=== PATIENT | female | born 1995 | race American Indian/Alaskan Native ===

== ENCOUNTER 2019-01-29 15:20 | Outpatient (CLI) | payer BC, MEDICAID ==
[2019-01-29 19:59] VITALS: BP 112/71
--- NOTE | 2019-01-29 20:17 | Ultrasound Report ---
Limited OB Ultrasound HISTORY: patient reportedly leaking fluid, concern for premature rupture of membranes. TECHNIQUE: Grayscale and color Doppler imaging performed. COMPARISON: None FINDINGS: Very limited imaging was performed to evaluate the CAROLYNN, which is 9.0. There is a single int rauterine gestation which is cephalic in presentation. Heart rate was 127 bpm. IMPRESSION: Single viable intrauterine gestation as above with CAROLYNN of 9.0. Signer Name: Cristian Galarza MD Signed: 01/29/2019 8:13 PM Workstation Name: [id number]
== END 2019-01-29 21:05 | disposition home or self-care (01) ==
LOC: TRG 15:20
PROVIDERS: ATTEND Obstetrics & Gynecology
DX: O47.1 False labor at or after 37 completed weeks of gestation (principal); Z3A.38 38 weeks gestation of pregnancy
CPT/HCPCS: 76815

== ENCOUNTER 2019-01-30 17:49 | Inpatient (IN) | payer BC, MEDICAID ==
[2019-01-30] MEDS ORDERED: LACTATED RINGERS 1,000 ML ONE (21:13)
[2019-01-30] MEDS ORDERED: MINERAL OIL PO PRN (21:51)
[2019-01-30] MEDS ORDERED: STADOL IV PRN (21:51)
[2019-01-30] MEDS ORDERED: SUBLIMAZE IV PRN (21:51)
[2019-01-30] MEDS ORDERED: BRETHINE IVP PRN (21:51)
[2019-01-30] MEDS ORDERED: BRETHINE SUB-Q PRN (21:51)
[2019-01-30] MEDS ORDERED: ZOFRAN IV PRN (21:51)
[2019-01-30] MEDS ORDERED: XYLOCAINE 2% INFILTRATI ONE (21:51)
[2019-01-30] MEDS ORDERED: PITOCin/NS 30 UNIT/500ML 30 UNITS/500 ML BAG IV SCH ×2 (22:00)
[2019-01-30] MEDS ORDERED: PITOCin/NS 20 UNIT/1000ML DRIP 20 UNITS/1,000 ML BAG IV SCH (22:00)
[2019-01-30 23:00] LABS: Hematocrit 34.9 % (30.3-42.9); Hemoglobin 11.5 gm/dl (10.1-14.3); Mean Corpuscular HGB Conc 33 % (30-34); Mean Corpuscular Volume 85 fl (79-97); Platelet Count 206 K/mm3 (140-440); Red Blood Count 4.12 M/mm3 (3.65-5.03); Red Cell Distribution Width 15.4 % (13.2-15.2)
[2019-01-31] MEDS: LACTATED RINGERS 1,000 ML IV SCH ×2 (02:00→05:04)
[2019-01-31] MEDS ORDERED: XYLOCAINE 2% INFILTRATI ONE (03:48)
[2019-01-31] MEDS ORDERED: NARCAN 0.4 MG/1 ML IV PRN (03:48)
--- NOTE | 2019-01-31 03:56 | History and Physical Report ---
History of Present Illness Date of examination: 01/31/19 Date of admission: 01/30/19 17:49 Chief complaint: My water broke on 01/29/2019 @ 1815. History of present illness: Late transfer into care at 33 1/7 Weeks; course is uncomplicated. Past History Past Medical History: no pertinent history Past Surgical History: no surgical history Family/Genetic History: hypertension Social history: no significant social history, single - Obstetrical History Expected Date of Delivery: 02/07/19 Actual Gestation: 39 Week(s) 0 Day(s) : 2 Induced : 1 Medications and Allergies Allergies Allergy/AdvReac Type Severity Reaction Status Date / Time No Known Allergies Allergy Verified 01/29/19 15:43 Active Meds: Active Medications Butorphanol Tartrate (Stadol) 2 mg IV Q2H PRN PRN Reason: Pain , Severe (7-10) Last Admin: 01/31/19 01:42 Dose: 2 mg Documented by: Ephedrine Sulfate (Ephedrine Sulfate) 10 mg IV Q2M PRN PRN Reason: Hypotension Fentanyl (Sublimaze) 100 mcg IV Q2H PRN PRN Reason: Labor Pain Oxytocin/Sodium Chloride (Pitocin/Ns 20 Unit/1000ml Drip) 20 units in 1,000 mls @ 125 mls/hr IV DIRECT JAYY Oxytocin/Sodium Chloride (Pitocin/Ns 30 Unit/500ml) 30 units in 500 mls @ 1 mls/hr IV TITR JAYY; Protocol Oxytocin/Sodium Chloride (Pitocin/Ns 30 Unit/500ml) 30 units in 500 mls @ 0 mls/hr IV TITR JAYY; Protocol Last Admin: 01/30/19 22:00 Dose: 2 ml/hr, 2 mls/hr Documented by: Lactated Ringer's (Lactated Ringers) 1,000 mls @ 125 mls/hr IV DIRECT JAYY Mineral Oil (Mineral Oil) 30 ml PO QHS PRN PRN Reason: Constipation Ondansetron HCl (Zofran) 4 mg IV Q8H PRN PRN Reason: Nausea And Vomiting Terbutaline Sulfate (Brethine) 0.25 mg SUB-Q ONCE PRN PRN Reason: Hyperstimulation/Hypertonicity Terbutaline Sulfate (Brethine) 0.25 mg IVP ONCE PRN PRN Reason: Hyperstimulation/Hypertonicity Review of Systems All systems: negative - Vital Signs Vital signs: Vital Signs Pulse BP 110 H 115/64 01/30/19 19:08 01/30/19 19:08 Temp Pulse Resp BP Pulse Ox 98.3 F 109 H 20 126/84 01/30/19 21:00 01/31/19 03:51 01/30/19 21:00 01/31/19 03:51 - Physical Exam Breasts: Positive: normal Cardiovascular: Regular rate Lungs: Positive: Clear to auscultation, Normal air movement Abdomen: Positive: normal appearance, soft, normal bowel sounds Genitourinary (Female): Positive: normal external genitalia, normal perenium Uterus: Positive: enlarged Extremities: Positive: normal - Obstetrical FHR: category 2 FHR comments: FHR: 158, decreased varability, -accels, +early decels Uterine Contraction Monitor Mode: External Cervical Dilatation: 6 (leaking clear fluid) Cervical Effacement Percentage: 80 station: -1 Uterine Contraction Pattern: Regular Uterine Tone Measurement Phase: Resting Uterine Contraction Intensity: Moderate Results Result Diagrams: 01/30/19 20:35 Abnormal lab results 01/30/19 Range/Units 20:35 WBC 12.8 H (4.5-11.0) K/mm3 RDW 15.4 H (13.2-15.2) % All other labs normal. Assessment and Plan A: IUP @ 39 Weeks Category II Tracing Prolonged Rupture of Membranes GBS Negative P: Admit to L&D per Routine Orders ABX prophylaxis due to prolonged rupture Epidural Anesthesia Pitocin Induction
[2019-01-31] MEDS ORDERED: AMPICILLIN/NS 2 GM/100 ML 2 GM/100 ML BAG IV ONE (04:00)
[2019-01-31] MEDS ORDERED: NARCAN 2 MG/2 ML IV PRN (04:52)
--- NOTE | 2019-01-31 04:52 | Anesthesia Consultation ---
Anesthesia Consult and Med Hx Date of service: 01/31/19 - Airway Anesthetic Teeth Evaluation: Good ROM Head & Neck: Adequate Mental/Hyoid Distance: Adequate Mallampati Class: Class II Intubation Access Assessment: Probably Good - Pulmonary Exam CTA: Yes - Cardiac Exam Cardiac Exam: RRR - Pre-Operative Health Status ASA Pre-Surgery Classification: ASA2 Proposed Anesthetic Plan: Epidural - Pulmonary Hx Asthma: No COPD: No - Cardiovascular System Hx Hypertension: No - Central Nervous System Hx Seizures: No Hx Psychiatric Problems: No - Endocrine Hx Renal Disease: No Hx Hypothyroidism: No Hx Hyperthyroidism: No - Hematic Hx Anemia: No Hx Sickle Cell Disease: No - Other Systems Hx Alcohol Use: No
[2019-01-31] MEDS ORDERED: fentaNYL-BUPIV 2 MCG/ML-0.125% 200 MCG/100 ML BAG EPIDURAL SCH (05:00)
[2019-01-31] MEDS ORDERED: CYTOTEC ONE (06:02)
--- NOTE | 2019-01-31 06:32 | Procedure Note ---
OB Delivery Note - Delivery Date of Delivery: 01/31/19 (0557) Surgeon: SARANYA PINA Estimated blood loss: 200cc - Vaginal Delivery presentation: vertex Delivery position: OA Intrapartum events: foul smelling fluid Delivery induction: oxytocin Delivery augmentation: pitocin Delivery monitor: external FHT, external uterine Route of delivery: Delivery placenta: spontaneous Delivery cord: 3 umbilical vessels Episiotomy: none Delivery laceration: 1st degree Delivery repair: vicryl Anesthesia: epidural Delivery comments: of a live 6'3 female infant over a 1st degree vaginal laceration under epidural anesthesia with Apgars of 8 and 9 at 0557 on 01/31/2019. Infant directly to maternal abd/chest, skin to skin contact. Spontaneous delivery of placenta complete and intact with Tellez side presenting at 0607. Fundus is firm and midline located 5 below the U. Lochia is scant. Vaginal laceration repaired with 2-0 Vicryl on a SH. Delayed cord clamping and cutting; cord cut by the Father of the Baby. Placenta to pathology due to foul smell. ABX prophylaxis x 1. - Infant A at 1 minute: 8 at 5 minutes: 9 Infant Gender: Female (6'3)
[2019-01-31] MEDS ORDERED: AMPICILLIN/NS 1 GM/50 ML 1 GM/50 ML BAG IV SCH (08:00)
[2019-01-31] MEDS ORDERED: LANSINOH TP PRN (09:30)
[2019-01-31] MEDS ORDERED: BENADRYL PO PRN (09:30)
[2019-01-31] MEDS ORDERED: NORCO 5/325 PO PRN (09:30)
[2019-01-31] MEDS ORDERED: PHENERGAN PR PRN (09:30)
[2019-01-31] MEDS ORDERED: SODIUM CHLORIDE FLUSH SYRINGE 10 ML IV PRN (09:30)
[2019-01-31] MEDS: IBUPROFEN PO SCH ×3 (09:34→21:40)
[2019-01-31] MEDS: PRENATAL VITAMIN PO SCH (09:35)
[2019-01-31] MEDS ORDERED: DULCOLAX PR PRN (10:00)
[2019-01-31 18:13] LABS: Hematocrit 30.6 % (30.3-42.9); Hemoglobin 10.1 gm/dl (10.1-14.3)
[2019-01-31] MEDS ORDERED: MILK OF MAGNESIA PO PRN (22:00)
[2019-02-01] MEDS: IBUPROFEN PO SCH ×3 (05:47→18:07)
--- NOTE | 2019-02-01 10:45 | Progress Note ---
Assessment and Plan A: PPD#1 s/p Stable P: Routine PP care Discharge home in am Subjective - Subjective Date of service: 02/01/19 Principal diagnosis: PPD#1 s/p Interval history: See H&P and delivery note Patient reports: appetite normal, voiding normally, pain well controlled, flatus, ambulating normally, no bowel movement : doing well, nursing well Objective - Vital Signs Latest vital signs: Vital Signs Temp Pulse Resp BP BP Pulse Ox 02/01/19 08:06 97.9 F 18 02/01/19 08:00 97.9 F 74 20 111/74 02/01/19 05:47 18 02/01/19 03:56 98.3 F 80 18 97/62 100 01/31/19 23:58 98.2 F 79 15 94/49 98 01/31/19 21:40 20 01/31/19 20:01 98.3 F 108 H 107/63 99 01/31/19 16:26 98.2 F 101 H 20 105/67 98 01/31/19 12:06 97.9 F 97 H 20 98/57 97 Intake and Output 01/31/19 02/01/19 02/01/19 23:59 07:59 15:59 Intake Total 360 480 Balance 360 480 Intake: Oral 360 480 Other: Total, Intake Amount 360 480 Voiding Method Toilet # Voids 2 Void 1 2 # Bowel Movements 0 - Exam Breasts: Present: normal, Cardiovascular: Present: Regular rate, Normal S1, Normal S2, No murmurs Abdomen: Present: normal appearance, soft, normal bowel sounds. Absent: distention Vulva: both: laceration/episiotomy (1st degree; well approximated) Uterus: Present: firm, fundal height at umbilicus Extremities: Present: normal Deep Tendon Reflex Grade: Normal +2
--- NOTE | 2019-02-01 10:47 | Discharge Summary ---
Providers - Providers Date of Admission: 01/30/19 17:49 Date of discharge: 02/02/19 Attending physician: ISABEL VELÁSQUEZ MD Primary care physician: ISABEL VELÁSQUEZ MD Hospitalization Reason for admission: active labor, IUP at term Delivery: Procedure details: See delivery note Episiotomy: none Laceration: 1st degree Other procedures: none complications: none Discharge diagnosis: IUP at term delivered baby: female Condition at discharge: Good Disposition: DC-01 TO HOME OR SELFCARE Plan - Provider Discharge Summary Activity: routine, no sex for 6 weeks, no heavy lifting 4 weeks, no strenuous exercise Diet: routine Instructions: routine Additional instructions: [] Smoking cessation referral if applicable(refer to patient education folder for contact #) [] Refer to [facility] Booklet Call your doctor immediately for: * Fever > 100.5 * Heavy vaginal bleeding ( >1 pad per hour) * Severe persistent headache * Shortness of breath * Reddened, hot, painful area to leg or breast * Drainage or odor from incision. * Keep incision clean and dry at all times and follow doctor's instructions regarding bathing/showering - Follow up plan Follow up: ISABEL VELÁSQUEZ MD [Primary Care Provider] - 6 Weeks
[2019-02-01] MEDS: PRENATAL VITAMIN PO SCH (18:08)
[2019-02-02] MEDS: PRENATAL VITAMIN PO SCH (10:13)
[2019-02-02 14:37] VITALS: BP 107/63
== END 2019-02-02 14:30 | disposition home or self-care (01) | DRG 807 ==
LOC: LD 17:49 → OB 01-31 08:02
PROVIDERS: ADMIT Obstetrics & Gynecology; ATTEND Obstetrics & Gynecology
PROC: 3E033VJ Introduction of Other Hormone into Peripheral Vein, Percutaneous Approach (ICD-10-PCS; 2019-01-30)
PROC: 10E0XZZ Delivery of Products of Conception, External Approach (ICD-10-PCS; principal; 2019-01-31)
PROC: 0HQ9XZZ Repair Perineum Skin, External Approach (ICD-10-PCS; 2019-01-31)
PROC: 3E0R3BZ Introduction of Anesthetic Agent into Spinal Canal, Percutaneous Approach (ICD-10-PCS; 2019-01-31)
PROC: 00HU33Z Insertion of Infusion Device into Spinal Canal, Percutaneous Approach (ICD-10-PCS; 2019-01-31)
DX: O63.0 Prolonged first stage (of labor) (principal); Z37.0 Single live birth; Z3A.39 39 weeks gestation of pregnancy; Z82.49 Family history of ischemic heart disease and other diseases of the circulatory system; O70.0 First degree perineal laceration during delivery
CPT/HCPCS: 36415; 85014; 85018; 85027; 86592; 86850; 86900; 86901; 88307; G0378; A6250; J0290; J0595; J2590; J3010; J7120